=== PATIENT | male | born 1955 | race Caucasian/White ===

== ENCOUNTER 2020-09-12 15:57 | Emergency (ER) | payer OTHER ==
[~2020-09-12 15:57] MED LIST: CARAFATE S500 MG/TSP PO
== END 2020-09-12 17:45 | disposition home or self-care (01) ==
LOC: FER 15:57
DX: R14.0 Abdominal distension (gaseous) (principal); R11.0 Nausea; R19.7 Diarrhea, unspecified; R63.0 Anorexia; J44.9 Chronic obstructive pulmonary disease, unspecified; Z86.19 Personal history of other infectious and parasitic diseases; Z87.891 Personal history of nicotine dependence; Z91.041 Radiographic dye allergy status; Z88.8 Allergy status to other drugs, medicaments and biological substances